=== PATIENT | female | born 1940 | race Caucasian/White ===

== ENCOUNTER → 2016-11-10 | Outpatient (CLI) | payer OTHER ==
[~2016-11-10] VITALS: Ht 162.6 cm; Wt 67.2 kg
[~2016-11-10] MED LIST: ANTIVERT12.5 MG PO; ASPIRIN EC81 M1 PO; AZITHROMYCIN 2250 MG PO; B12INJ IM; BENTYL10 MG PO; BUTRANS TRANSDERM; BUTRANS1 EAC1 TD; CARAFATE 1 GM TA1 G1 PO; CELEBREX 200 M200 MG PO; CIPROFLOXACIN250 M2 PO; CIPROFLOXACIN500 M1 PO; DESYREL50 MG PO; EFFEXOR XR150 MG PO; ESTRADIOL 1 MG T1 M1; ESTROVEN MAX400 MCG PO; FENTANYL PA25 MCG/HR TRANSDERM; FLAGYL500 MG PO; FLONASE 0.05%50 MCG NASAL; GABAPENTIN 100100 MG PO; GLUCOPHAGE1000 MG PO; GLUCOPHAGE500 MG PO; GLYCOLAX POWDER17 G1 PO; HEMORRHOIDAL HC25 MG RECTAL; HORMONE; HYDROCODON-ACE1 EAC5 PO; KLOR-CON 1010 MEQ PO; LANTUS SUBQ; LASIX 40 MG TAB40 M1 PO; LASIX 40 MG TAB40 M2 PO; LEVEMIR SUBQ; LEVSIN-SL0.125 MG SL; LOPRESSOR25 PO; LORAZEPAM 1 MG T1 M1 PO; METFORMIN HCL500 M2 PO; METFORMIN HCL500 MG PO; METHADONE HCL5 MG PO; MIRALAX255 GM PO; MULTI VITAMIN1 EACH PO; NEURONTIN 300300 M1 PO; NORCO 10-325 T1 EACH PO; NORCO 5-325 TA1 EACH PO; NOVOLOG100 UNIT/1 SUBQ; OMEPRAZOLE40 MG PO; OPIUM TINC10 MG/1 M1 PO; OPIUM TINCTURE PO; OXYBUTYNIN CHLO10 MG PO; OXYCODONE; OXYCODONE HCL20 M1 PO; OXYCODONE PO; OXYCODONE-ACET1 EAC2 PO; OXYCONTIN; OXYCONTIN10 M1 PO; OXYCONTIN20 M1 PO; OXYCONTIN30 MG PO; PERCOCET 10-321 EAC1 PO; PRILOSEC40 MG PO; REGLAN 5 MG TAB5 M1 PO; RESTORIL30 MG PO; SANDOSTATI500 MCG/1 IJ; SIMVASTATIN40 MG PO; TOPROL XL25 MG PO; TRAMADOL 50 MG50 MG PO; TRAZODONE HCL100 MG PO; TRAZODONE PO; ZOCOR40 MG PO; [UNRECOGNIZED DRUG - OTHER] PO
--- NOTE | ~2016-11-10 | HPC ---
[facility] [place] [address] PAIN MANAGEMENT CONSULTATION Name: OPHELIAMALIBRIGETTEYEN YAIR Room #: REG [facility] M.R.#: [id number] Admission: 11/10/16 Attend Phys: Pablo Adams MD Discharge: Date of : 41 Report #: [id number] THIS REPORT FOR: //name// CC: Nguyễn Adams DATE OF SERVICE: 11/10/2016 Followup visit for chronic intractable pain. She complains today of right fifth metatarsophalangeal tenderness and pain, which has responded nicely in the past to injection and also her chronic upper back and neck pain. The patient is here today in followup. She complains of 2 separate pains which are bothersome and she would like injections. She has been recipient of an injection of the metatarsophalangeal joint of the fifth toe in the past and said that it really helped. That pain is now recurring and is affecting her ambulation. It is well localized and tender. She also has chronic low back pain, chronic abdominal pain with intractable diarrhea following surgery and also complains of shoulder and upper back pain. Her pain on a daily basis is an 8/10. She is receiving medications under terms of an opioid agreement and all of those medications are provided through Dr. Germain's office. I do not prescribe any medications. MEDICATIONS: Simvastatin for intractable diarrhea, OxyContin 20 mg b.i.d. Estradiol, temazepam 30 mg at bedtime, gabapentin 100 mg t.i.d., insulin, aspirin, metoprolol, venlafaxine 150 mg daily, Imodium and tincture of opium have been tried in the past. ALLERGIES: Iodinated contrast material and she reacted to hepatitis B vaccine. PHYSICAL EXAMINATION: GENERAL: She is pleasant, alert and oriented. At times in the past I have seen her she is overmedication or confused, today, she was fine. VITAL SIGNS: Her blood pressure 168/75, heart rate 76, BMI is 25.4. EXTREMITIES: Examination of the upper back reveals diffuse myofascial tender points throughout the trapezius bilaterally. Examination of the right lower extremity reveals a very tender metatarsophalangeal joint of the fifth digit. IMPRESSION: 1. 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 She has been left with chronic intractable diarrhea. 2. Osteoarthritis fifth partial right foot. 3. Upper back pain with myofascial features. RECOMMENDATION: Trigger point injections in the trapezius bilaterally and [address] [address] PAIN MANAGEMENT CONSULTATION Name: YEN RAMIREZ [facility] Room #: REG NEEL Rodas#: [id number] Admission: 11/10/16 Attend Phys: Pablo Adams MD Discharge: Date of : 41 Report #: [id number] fluoroscopically guided metatarsophalangeal injection. After informed consent, she was taken to the fluoroscopy suite. She was placed supine on the x-ray table. I was able to easily visualize the metatarsophalangeal joint and the skin was anesthetized. I then used a 27-gauge needle and gently injected 0.5 mL of 0.5% bupivacaine and 20 mg of triamcinolone into the periarticular area as well as the joint itself. Needle was removed. She tolerated the injection well. She was then placed in the sitting position and trigger points x 4 were identified in the right and left trapezius. These trigger points were then each injected with 1 mL of 0.5% bupivacaine mixed with 1 mg per mL of triamcinolone. She tolerated the injections well and was observed for a short time at discharge. No medications were ordered. By: 1721 0300 Pablo Adams MD /nt
[2016-11-10 14:47] VITALS: BP 168/75
== END | disposition home or self-care (01) ==
LOC: PAIN 10-20 07:08
DX: M19.071 Primary osteoarthritis, right ankle and foot (principal); M79.1 Myalgia; G89.29 Other chronic pain; R10.9 Unspecified abdominal pain; M54.9 Dorsalgia, unspecified; I10 Essential (primary) hypertension; E11.9 Type 2 diabetes mellitus without complications; Z85.118 Personal history of other malignant neoplasm of bronchus and lung; Z98.890 Other specified postprocedural states

== ENCOUNTER 2017-03-24 16:08 | Inpatient (IN) | payer OTHER ==
[~2017-03-24] VITALS: Ht 162.6 cm; Wt 68.1 kg
--- NOTE | ~2017-03-24 | H ---
[facility] [place] [address] [place] [address] HISTORY AND PHYSICAL Name: OPHELIAMALIBRIGETTELEVONYEN YAIR Room #: 456-P ADM IN M.R.#: [id number] Admission: 03/24/17 Attend Phys: Bal Hummel Discharge: Date of : 41 Report #: [id number] THIS REPORT FOR: //name// CC: Nguyễn Germain CHIEF COMPLAINT: Weakness. HISTORY OF PRESENT ILLNESS: The patient is a 76-year-old female who was admitted to the Emergency Room with weakness. She was found down at home by her family and 911 was activated. By the time they arrived, the report was she had a blood sugar around 31 and was unresponsive. She was given D10, an additional glucose and oral treatment by the time in the ER. Blood sugar was stabilized; however, she had several lab abnormalities including abnormal renal function, lactic acid and D-dimer and therefore has been admitted. She said she just feels weak and sick all over, but really cannot specify any symptoms. She does admit to some diarrhea, but she cannot quantify or give more characteristic. She denied any fever, abdominal pain, nausea. PAST MEDICAL HISTORY: Diabetes type 2, hypertension, ____ to the bowel, she had a partial small-bowel obstruction years ago, which has left her with short gut syndrome. PAST SURGICAL HISTORY: As above. FAMILY HISTORY: Noncontributory. SOCIAL HISTORY: She lives with her family. No chronic alcohol or tobacco use. ALLERGIES: IODINE. MEDICATIONS: Octreotide, she reports OxyContin 20 mg twice a day, estradiol 1 mg, Restoril 30 mg, Neurontin 100 mg t.i.d., Effexor-XR 150 mg b.i.d., Prilosec, NovoLog with meals, aspirin 81 mg, Lopressor 25 mg b.i.d. and Levemir 25 units at bedtime. REVIEW OF SYSTEMS: She denies headache, chest pain, shortness of breath, abdominal pain, nausea, vomiting, diarrhea, constipation, dysuria, syncope or fall. PHYSICAL EXAMINATION: VITAL SIGNS: Per the nursing note. GENERAL: Awake, alert, in no distress. LUNGS: Clear. HEENT: She is edentulous. HEART: Regular. ABDOMEN: Soft, normoactive bowel sounds. No rebound. EXTREMITIES: No cyanosis, clubbing or edema. [address] [place] [address] HISTORY AND PHYSICAL Name: YEN RAMIREZ [facility] Room #: 456-P [facility] IN M.R.#: [id number] Admission: 03/24/17 Attend Phys: Bal Hummel Discharge: Date of : 41 Report #: [id number] NEUROLOGIC: Motor strength 4/5 throughout. LABORATORY DATA: Reviewed. ASSESSMENT: 1. Diabetic hypoglycemic reaction. 2. Acute kidney injury. 3. Uncontrolled diabetes type 2. 4. Short bowel syndrome. 5. Diarrhea. PLAN: Symptomatic treatment will be entered. Her electrolytes are improved and renal function with IV fluids. This may just be a prerenal state. Additional studies have been requested. Empiric antibiotics until culture is done. <ELECTRONICALLY SIGNED> By: Skyler Baker MD 03/26/17 0858 1305 1358 Skyler Baker MD /nt
--- NOTE | ~2017-03-24 | EKG ---
[address] [place] [employer] [address] ELECTROCARDIOGRAM REPORT Name: ASHLEYYEN Room #: 456-P ADM IN M.R.#: [id number] Admission: 03/24/17 Attend Phys: Bal Hummel Discharge: Date of : 41 Report #: [id number] THIS REPORT FOR: //name// [facility] ED Test Date: 2017-03-24 Test Time: 17:47:21 Pat Name: YEN RAMIREZ Department: Room: [facility] Gender: F Driver Guide: Jaswinder DESAI : 1940 Requested By: Patrick Lopez Order Number: [id number] MD: Quinn Saravia Measurements Intervals [place] Rate: 101 P: 39 MT: 173 QRS: 25 QRSD: 85 T: 44 QT: 342 QTc: 444 Interpretive Statements Sinus tachycardia No significant abnormality Compared to ECG 09/15/2016 14:03:06 No significant change was found Electronically Signed On 03-25-2017 7:54:52 CDT by Quinn Saravia [email or web address] <ELECTRONICALLY SIGNED> By: Quinn Saravia MD, [facility] 03/25/17 0754 1747 174 Quinn Saravia MD, [facility] /EPI
--- NOTE | ~2017-03-24 | D ---
[facility] [place] [place] [address] DISCHARGE SUMMARY Name: ASHLEYYEN YAIR Room #: 456-P ADM IN M.R.#: [id number] Admission: 03/24/17 Attend Phys: Bal Hummel Discharge: Date of : 41 Report #: [id number] THIS REPORT FOR: //name// CC: Nguyễn Germain FINAL DIAGNOSES: 1. Acute kidney injury due to dehydration, resolved. 2. Hypoglycemia. 3. Diabetes type 2. 4. Hypertension. 5. Short bowel syndrome. HOSPITAL COURSE: The patient right was admitted with altered mental status from home. She was found to have elevated BUN and creatinine consistent with dehydration with her reports of diarrhea at home. Blood cultures were negative. Urine sample was fairly unremarkable. Other studies were unremarkable as well. She was treated symptomatically with IV fluids and supportive measures. She improved with this conservative treatment. Insulin was discontinued and her blood sugars remained below 200. I discontinued her narcotics and sleeping medications for concerns of misuse at home, but also with altered mental status. She was not having any uncontrolled pain during her stay nor any complaints of insomnia. She was still globally weak and I recommended intermediate rehabilitation. DISPOSITION: She will be transferred to [facility] under the care of the inhouse physician. DIET: Diabetic diet. ACTIVITY: As tolerated, PT and OT. MEDICATIONS: Will include aspirin 81 mg, metoprolol 25 mg twice a day, Norvasc 10 mg a day. INSTRUCTIONS: I have asked them to watch her blood sugars 4 times a day and add low doses of insulin as needed and follow up BMP on Thursday. <ELECTRONICALLY SIGNED> By: Skyler Baker MD 03/27/17 1622 1444 1458 Skyler Baker MD /nt
[2017-03-24 16:08] VITALS: BP 156/80
[2017-03-24 16:56] LABS: HEMATOCRIT 33.2 % (37.0-47.0); HEMOGLOBIN 10.7 gm/dL (12.0-15.0); MANUAL DIFF YES; MCH 28.5 pg (26.0-34.0); MCHC 32.2 g/dL (28.0-37.0); MCV 88.4 fL (80.0-100.0); PLATELET COUNT 257 thou/uL (150-400); RBC 3.75 mil/uL (4.20-5.00); RDW 14.6 % (10.5-14.5); URINE BILIRUBIN NEGATIVE (Negative); URINE BLOOD TRACE (Negative); URINE COLOR YELLOW; URINE GLUCOSE-RANDOM* NEGATIVE (Negative); URINE KETONES NEGATIVE (Negative); URINE NITRITE NEGATIVE (Negative); URINE PROTEIN (DIPSTICK) TRACE (Negative); URINE SPECIFIC GRAVITY >= 1.030 (1.003-1.035); URINE UROBILINOGEN 0.2 E.U./dl (0.2-1.0); WBC 20.2 thou/uL (4.0-11.0)
[2017-03-24 17:05] LABS: CALCIUM 8.6 mg/dL (8.5-10.1); CREATININE 2.6 mg/dL (0.6-1.0); POTASSIUM 5.7 mmol/L (3.5-5.1)
[2017-03-24 17:21] LABS: ALBUMIN 3.2 g/dL (3.4-5.0); ALKALINE PHOSPHATASE 85 U/L (46-116); DIRECT BILIRUBIN < 0.1 mg/dL (<0.1-0.3); SGOT 40 U/L (15-37); SGPT 32 U/L (30-65); TOTAL BILIRUBIN 0.2 mg/dL (<0.1-1.0)
[2017-03-24 18:16] LABS: ABSOLUTE NEUTROPHILS 19.6 thou/uL (1.4-8.2); ANISOCYTOSIS 1+; MICROCYTES SLIGHT; TOTAL CELL COUNT 100
[2017-03-24 18:50] VITALS: BP 158/58
[2017-03-24 19:56] VITALS: BP 185/84
[2017-03-25 00:14] VITALS: BP 144/80
[2017-03-25 04:18] VITALS: BP 185/83
[2017-03-25 06:06] LABS: HEMATOCRIT 31.5 % (37.0-47.0); HEMOGLOBIN 10.3 gm/dL (12.0-15.0); MCH 28.9 pg (26.0-34.0); MCHC 32.7 g/dL (28.0-37.0); MCV 88.4 fL (80.0-100.0); RBC 3.56 mil/uL (4.20-5.00); RDW 14.5 % (10.5-14.5); WBC 9.8 thou/uL (4.0-11.0)
[2017-03-25 06:26] LABS: ALBUMIN 2.9 g/dL (3.4-5.0); CALCIUM 8.3 mg/dL (8.5-10.1); CREATININE 2.2 mg/dL (0.6-1.0); POTASSIUM 5.1 mmol/L (3.5-5.1); TOTAL BILIRUBIN 0.2 mg/dL (<0.1-1.0); TOTAL PROTEIN 7.6 g/dL (6.4-8.2)
[2017-03-25 08:44] VITALS: BP 174/81
[2017-03-25 11:46] VITALS: BP 176/76
[2017-03-25 15:31] VITALS: BP 166/90
[2017-03-25 19:20] VITALS: BP 178/93
[2017-03-26 05:46] LABS: HEMATOCRIT 30.1 % (37.0-47.0); HEMOGLOBIN 10.1 gm/dL (12.0-15.0); MCH 30.1 pg (26.0-34.0); MCHC 33.5 g/dL (28.0-37.0); MCV 89.8 fL (80.0-100.0); RBC 3.35 mil/uL (4.20-5.00); RDW 15.2 % (10.5-14.5); WBC 8.5 thou/uL (4.0-11.0)
[2017-03-26 06:10] LABS: CALCIUM 8.1 mg/dL (8.5-10.1); CREATININE 1.6 mg/dL (0.6-1.0); POTASSIUM 5.2 mmol/L (3.5-5.1)
[2017-03-26 07:47] VITALS: BP 179/85
[2017-03-26 11:53] VITALS: BP 179/86
[2017-03-26 15:52] VITALS: BP 164/81
[2017-03-26 20:08] VITALS: BP 188/84
[2017-03-27 04:40] VITALS: BP 186/94
[2017-03-27 06:04] LABS: CALCIUM 8.3 mg/dL (8.5-10.1); CREATININE 1.5 mg/dL (0.6-1.0); POTASSIUM 4.4 mmol/L (3.5-5.1)
[2017-03-27 08:24] VITALS: BP 163/93
[2017-03-27] MEDS ORDERED: AMLODIPINE BESYL5 M1 PO (09:08)
[2017-03-27 12:11] VITALS: BP 180/91
[2017-03-27 14:20] VITALS: BP 183/91
[2017-03-27] MEDS ORDERED: NORVASC10 MG PO ×3 (14:36→14:46)
[2017-03-27] MEDS ORDERED: NORVASC5 MG PO ×2 (14:51→14:54)
[2017-03-27 16:07] VITALS: BP 172/89
[2017-04-02] MEDS ORDERED: AMLODIPINE BESYL5 M1 PO (10:05)
== END 2017-03-27 17:00 | DRG 637 ==
LOC: ER 16:08 → 4W 18:34 → EROBS 18:34 → 3N 18:34 → 4W 22:40
PROVIDERS: Internal Medicine Geriatric Medicine; Nurse Practitioner
DX: E11.649 Type 2 diabetes mellitus with hypoglycemia without coma (principal); G93.41 Metabolic encephalopathy; E87.1 Hypo-osmolality and hyponatremia; K91.2 Postsurgical malabsorption, not elsewhere classified; N17.0 Acute kidney failure with tubular necrosis; Z96.643 Presence of artificial hip joint, bilateral; E11.9 Type 2 diabetes mellitus without complications; E87.5 Hyperkalemia; E86.0 Dehydration; Y83.8 Other surgical procedures as the cause of abnormal reaction of the patient, or of later complication, without mention of misadventure at the time of the procedure; K52.9 Noninfective gastroenteritis and colitis, unspecified; Z90.49 Acquired absence of other specified parts of digestive tract; Z85.038 Personal history of other malignant neoplasm of large intestine; Z88.7 Allergy status to serum and vaccine; Z91.041 Radiographic dye allergy status; I10 Essential (primary) hypertension
CPT/HCPCS: 10047

== ENCOUNTER 2017-03-30 17:58 | Inpatient (IN) | payer OTHER | END 2017-04-02 12:41 | DRG 682 | LOC: ER 17:58 → EROBS 19:32 → 4E 21:10 | DX: N17.9 Acute kidney failure, unspecified (principal); G93.41 Metabolic encephalopathy; Z96.643 Presence of artificial hip joint, bilateral; E11.22 Type 2 diabetes mellitus with diabetic chronic kidney disease; I12.9 Hypertensive chronic kidney disease with stage 1 through stage 4 chronic kidney disease, or unspecified chronic kidney disease; G89.4 Chronic pain syndrome; N18.9 Chronic kidney disease, unspecified; R47.1 Dysarthria and anarthria; Z90.49 Acquired absence of other specified parts of digestive tract; Z85.038 Personal history of other malignant neoplasm of large intestine; Z88.7 Allergy status to serum and vaccine; Z91.041 Radiographic dye allergy status ==

== ENCOUNTER → 2017-07-15 | Outpatient (CLI) | payer OTHER ==
[~2017-07-15] MED LIST changes: +AMLODIPINE BESYL5 M1 PO; +NORVASC10 MG PO; +NORVASC5 MG PO; +ULTRAM 50MG TAB50 MG PO
== END ==
LOC: CAT 13:09
DX: S62.643A Nondisplaced fracture of proximal phalanx of left middle finger, initial encounter for closed fracture (principal); C80.1 Malignant (primary) neoplasm, unspecified; X58.XXXA Exposure to other specified factors, initial encounter; Y93.89 Activity, other specified; Y92.89 Other specified places as the place of occurrence of the external cause; Y99.8 Other external cause status

== ENCOUNTER 2017-11-23 13:24 | Inpatient (IN) | payer OTHER ==
[~2017-11-23] VITALS: Ht 162.6 cm; Wt 54.0 kg
--- NOTE | ~2017-11-23 | HC ---
[facility] [place] [place] [address] CONSULTATION Name: OPHELIAMALIBRIGTETEYEN YAIR Room #: 432-P ADM IN M.R.#: [id number] Admission: 11/23/17 Attend Phys: Skyler Baker MD Discharge: Date of : 41 Report #: [id number] THIS REPORT FOR: //name// CC: Nguyễn Baker REASON FOR CONSULTATION: Acute kidney injury. REASON FOR PRESENTATION: Abdominal pain and diarrhea. HISTORY OF PRESENT ILLNESS: This is a 77-year-old with extensive past medical history. 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 She presented with weakness, diffuse abdominal pain, profuse diarrhea in the last few days. On presentation, she was found to have an elevated creatinine. Looking back all through 6901-8126, she had normal kidney function. She did have an acute kidney injury back in 2016 and creatinine settled at 1.3. When she presented, her creatinine was 3.5. I was consulted to manage her acute kidney injury. She was also found to be anemic. 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 This was a right hemicolectomy. She denies nonsteroidal anti-inflammatory medications intake. She takes some blood pressure medications, but she is not aware of those medications. PAST MEDICAL HISTORY: 1. Type 2 diabetes mellitus. 2. CVA. 3. Hep B. 4. Carcinoid. 5. Status post cholecystectomy. 6. Hysterectomy. 7. Hypertension. 8. Status post colectomy. ALLERGIES: DYE. FAMILY HISTORY: No known chronic kidney disease. SOCIAL HISTORY: She resides in an assisted living. No drug or alcohol abuse. 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 MEDICATIONS: Listed on her medications, Norvasc, tramadol, omeprazole, aspirin and Effexor. REVIEW OF SYSTEMS: GENERAL: Significant for weakness. CARDIOVASCULAR: No chest pain or palpitation. PULMONARY: No cough or hemoptysis. [facility] [address] [place] [address] CONSULTATION Name: YEN RAMIREZ [facility] Room #: 432-P [facility] IN .R.#: [id number] Admission: 11/23/17 Attend Phys: Skyler Baker MD Discharge: Date of : 41 Report #: [id number] GASTROINTESTINAL: No nausea or vomiting. However, significant diarrhea. GENITOURINARY: No frequency, no urgency, no hesitancy. PHYSICAL EXAMINATION: GENERAL: She is alert, oriented, in no apparent distress. VITAL SIGNS: Blood pressure is more stable at 132/68. There was no evidence of hypotension when she presented. HEAD AND NECK: No JVD. CARDIOVASCULAR: No chest pain or palpitation. No rub. ABDOMEN: Soft, nontender. LOWER EXTREMITIES: No edema. LABORATORY DATA: Laboratory values reviewed. Hemoglobin is still low at 7.2. She did have an MCV that is low at 78. Potassium is down from 5.7 to 5.6. BUN is 35, creatinine is down to 2.8. Liver enzymes were within normal. She did have low albumin. C. diff was negative. Ultrasound of the kidneys revealed cyst. Chest x-ray, no acute abnormality. ASSESSMENT, IMPRESSION AND PLAN: 1. Acute kidney injury. 2. Diarrhea in a patient with ileal carcinoid tumor. 3. Status post hemicolectomy. 4. Hypertension. 5. Hyperkalemia. 6. Anemia. 7. It does look like that she had an evidence of volume depletion on her presentation. This seemed to have responded very well to IV fluids. 8. I will reformulate her IV fluids. 9. Watch the potassium. It is marginally elevated and there is no need to treat it for now. 10. Continue with the IV fluids. 11. Avoid nephrotoxins. 12. GI workup for her anemia. We will continue to follow along. <ELECTRONICALLY SIGNED> By: Hernandez Cardona MD 11/30/17 0641 0735 0854 Hernandez Cardona MD /nt
--- NOTE | ~2017-11-23 | EKG ---
[address] [place] [address] ELECTROCARDIOGRAM REPORT Name: ASHLEYYEN Room #: 170-10 ADM IN M.R.#: [id number] Admission: 11/23/17 Attend Phys: Skyler Baker MD Discharge: Date of : 41 Report #: [id number] THIS REPORT FOR: //name// [facility] ED Test Date: 2017-11-23 Test Time: 13:39:04 Pat Name: YEN RAMIREZ Department: Room: 170 Gender: F Firer [employer]: BERNARD : 1940 Requested By: Beltran Mora Order Number: [id number] MD: Quinn Saravia Measurements Intervals [place] Rate: 98 P: 44 MT: 145 QRS: 34 QRSD: 73 T: 60 QT: 342 QTc: 437 Interpretive Statements Sinus rhythm No significant abnormality Compared to ECG 03/30/2017 18:06:06 No significant change was found Electronically Signed On 11-23-2017 17:18:40 CDT by Quinn Saravia [email or web address] <ELECTRONICALLY SIGNED> By: Quinn Saravia MD, [facility] 11/23/17 1718 1339 133 Quinn Saravia MD, [facility] /EPI
--- NOTE | ~2017-11-23 | D ---
[facility] [place] [address] DISCHARGE SUMMARY Name: YEN RAMIREZ YAIR Room #: 221-P ADM IN M.R.#: [id number] Admission: 11/23/17 Attend Phys: Skyler Baker MD Discharge: Date of : 41 Report #: [id number] THIS REPORT FOR: //name// CC: Nguyễn Baker FINAL DIAGNOSES: 1. Weyqx-rr-dgnysve kidney disease, stage 4. 2. Short bowel syndrome. 3. Diarrhea due to the above. 4. Hypertension. 5. Diabetes type 2. 6. Gastritis. PROCEDURES: 1. EGD. 2. Attempted colonoscopy. HOSPITAL COURSE: The patient was admitted with weakness. She was found to have nnblm-we-zmfruok kidney disease with elevated BUN and creatinine and electrolyte disturbance. IV fluids were administered and the Renal Service followed her. GI followed her as well. EGD showed gastritis, attempted colonoscopy x 2 but she was unable to proceed with the bowel prep and therefore it was canceled. She has known prior history of carcinoid with extensive bowel resection including right hemicolon and I believe some degree of small bowel. Ultimately felt that her diarrhea and high output along with kidney injury was related to short bowel syndrome and GI fluid loss. Imodium and fiber were added and she had no other interval complications. PHYSICAL EXAMINATION: On the day of discharge: GENERAL: She was awake and alert. VITAL SIGNS: Stable. LUNGS: Clear. HEART: Regular. ABDOMEN: Soft, normoactive bowel sounds. EXTREMITIES: No edema. DISPOSITION: She will be transferred to [facility]. Lab work will be ordered Thursday, Thursday and Thursday. Continue current medications. Followup with Dr. Germain in [address] Coleman in 2 weeks. By: 1036 1319 Skyler Baker MD /nt
--- NOTE | ~2017-11-23 | P ---
[facility] [place] [address] PROCEDURE REPORT Name: YEN RAMIREZ YAIR Room #: 432-P [facility] IN M.R.#: [id number] Admission: 11/23/17 Attend Phys: Skyler Baker MD Discharge: Date of : 41 Report #: [id number] THIS REPORT FOR: //name// CC: Nguyễn Baker MD BRIEF HISTORY: The patient is a 77-year-old woman who has a microcytic anemia. She also has Hemoccult-positive stools. She has had problems with diarrhea. She also has a history of diabetes. In addition, she has abdominal pain as well. PREOPERATIVE DIAGNOSES: Abdominal pain, diarrhea, anemia, and Hemoccult-positive stools. POSTOPERATIVE DIAGNOSIS: Moderate antral erosive gastritis. MEDICATIONS: Deep sedation with propofol per anesthesia. SPECIMENS: 1. Small-bowel biopsies to rule out celiac disease. 2. Biopsies of gastritis. ESTIMATED BLOOD LOSS: 3 mL. PROCEDURE: EGD with biopsy. FINDINGS: Prior to propofol sedation, procedure of upper endoscopy was discussed with the patient as well as potential risks, benefits, and complications. She indicates she understands and desires to proceed. With the patient in left lateral decubitus position, the [employer] video endoscope was inserted in the cervical esophagus under direct vision without difficulty. Examination of this organ through its entire length revealed normal esophageal mucosa down the squamocolumnar junction. No ulcers, erosions, or bleeding lesions were seen. A hiatus hernia was not seen. There was no evidence of Jaramillo mucosa. Scope was advanced in the stomach, which was examined on end view as well as retroflexed views. There were erosions in the antrum without evidence of bleeding. These were likely result of her daily use of aspirin. Ulcers were not seen. Otherwise, the mucosa was intact throughout the stomach. Upon retroflexion, no mass lesions were seen. A significant hiatus hernia was not seen. The pylorus, duodenal bulb, and postbulbar sweep were all inspected and noted to be within normal limits. At that point, the scope was slowly withdrawn and careful circumferential views obtained. Biopsies were obtained of the small-bowel to rule out celiac disease. DISPOSITION: The patient with anemia, Hemoccult positive stools, abdominal pain [address] [address] PROCEDURE REPORT Name: YEN RAMIREZ [facility] Room #: 432-P [facility] IN M.R.#: [id number] Admission: 11/23/17 Attend Phys: Skyler Baker MD Discharge: Date of : 41 Report #: [id number] and diarrhea with the above mentioned findings. We will follow up on biopsies with regard to celiac disease as well as H. pylori. PPI would be reasonable at this point in time. We will proceed with colonoscopy for further evaluation. <ELECTRONICALLY SIGNED> By: Jamaal Moss MD 11/30/17 1712 1157 1448 Jamaal Moss MD /christine
--- NOTE | ~2017-11-23 | H ---
[facility] [place] [address] HISTORY AND PHYSICAL Name: ASHLEYYEN YAIR Room #: 432-P ADM IN M.R.#: [id number] Admission: 11/23/17 Attend Phys: Skyler Baker MD Discharge: Date of : 41 Report #: [id number] THIS REPORT FOR: //name// CC: Nguyễn Baker DATE OF SERVICE: 11/23/2017 CHIEF COMPLAINT: Weakness and confusion. HISTORY OF PRESENT ILLNESS: The patient is a 77-year-old female brought to the Emergency Room from her assisted living facility with confusion and weakness. The history is very limited and I spoke to the ER physician. Apparently, her son called this morning as per routine, but she did not sound normal. She reported to him that she was just feeling "off" but really could not provide any other specific symptoms. EMS was called to the independent living facility and she was brought to the Emergency Room. She did report to me symptoms of diarrhea, but denied any fever, chills, nausea, vomiting, productive cough or dysuria. She had a similar episode in 03/2017. She had acute kidney injury with elevated BUN and creatinine on some chronic kidney disease. There were reports of diarrhea at that time, but infectious workup was negative. She responded to conservative treatment of IV fluids and then transferred to a shelter facility. PAST MEDICAL HISTORY: Hypertension, short bowel syndrome, diabetes type 2, chronic pain syndrome, chronic kidney disease. PAST SURGICAL HISTORY: She has had colon cancer with partial colon resection, hysterectomy, laparoscopic cholecystectomy, bilateral hip replacement. FAMILY HISTORY: Noncontributory. SOCIAL HISTORY: Denies chronic alcohol or tobacco use. ALLERGIES: IODINE CONTRAST, HEPATITIS B VACCINE. MEDICATIONS: Norvasc, tramadol, omeprazole, Lopressor, aspirin, Effexor. REVIEW OF SYSTEMS: Other than complaining of diarrhea and weakness, she denies chest pain, shortness of breath, nausea, vomiting, dysuria, syncope or fall. PHYSICAL EXAMINATION: VITAL SIGNS: Temperature 37.7, pulse 100, respirations 10, blood pressure 157/77, O2 sat 100% on room air. [facility] [address] [place] [address] HISTORY AND PHYSICAL Name: YEN RAMIREZ [facility] Room #: 432-P [facility] IN .R.#: [id number] Admission: 11/23/17 Attend Phys: Skyler Baker MD Discharge: Date of : 41 Report #: [id number] GENERAL: She is awake, lying in bed, in no distress. HEAD AND NECK: She is edentulous with dry mucous membranes. LUNGS: Clear anteriorly. HEART: Regular, no murmur. ABDOMEN: Soft, normoactive bowel sounds. No rebound or guarding. EXTREMITIES: No cyanosis, clubbing or edema. NEUROLOGIC: She moves all extremities equally. She seems to recognize she is at the hospital. She could remember Dr. Germain's name. LABORATORY REVIEW: White count is 10, hemoglobin 9, MCV 79. Sodium 134, potassium 5.5, CO2 15, BUN 47, creatinine 3.2. CT head, chest x-ray were unremarkable. Urinalysis was negative. ASSESSMENT: 1. Acute kidney injury. 2. Hypertension. 3. Hyperkalemia. 4. Mild protein-calorie malnutrition. 5. Metabolic encephalopathy due to #1. PLAN: Fluids have been ordered. I will ask for a renal ultrasound to rule out hydronephrosis or obstruction. May need to investigate this report of diarrhea given her short bowel syndrome and if she is having significant liquid stools, maybe she is not able to keep up with oral intake. <ELECTRONICALLY SIGNED> By: Skyler Baker MD 11/24/17 1005 1505 1527 Skyler Baker MD /nt
--- NOTE | ~2017-11-23 | P ---
[facility] [place] [address] PROCEDURE REPORT Name: YEN RAMIREZ YAIR Room #: 432-P [facility] IN M.R.#: [id number] Admission: 11/23/17 Attend Phys: Skyler Baker MD Discharge: Date of : 42 Report #: [id number] THIS REPORT FOR: //name// CC: Nguyễn Baker MD BRIEF HISTORY: The patient is a 77-year-old woman with a history of a small bowel carcinoid resected more than 5 years ago with an ileocolonic anastomosis. She has had problems with diarrhea. She also has Hemoccult positive stools, microcytic anemia and abdominal pain. PREOPERATIVE DIAGNOSES: History of carcinoid, anemia, Hemoccult positive stools, abdominal pain. POSTOPERATIVE DIAGNOSES: History of carcinoid, anemia, Hemoccult positive stools, abdominal pain. MEDICATIONS: Deep sedation with propofol per Anesthesia. SPECIMEN: None. ESTIMATED BLOOD LOSS: None. PROCEDURE: Aborted colonoscopy. FINDINGS: Prior to propofol sedation, the procedure of colonoscopy discussed with the patient. The patient did not complete all of her prep, but believes that she has had a good enough prep for colonoscopy. DESCRIPTION OF PROCEDURE: Subsequently, digital examination was completed, which revealed no abnormalities. The Shoot Extreme video colonoscope was introduced in the rectum, advanced under direct vision. There was some liquidy stool in the rectum. As we advanced the scope into the sigmoid colon, the entire surface of colon was coated with thick stool material. It was obvious at this point that we could not complete a satisfactory colonoscopy. The prep was inadequate. The scope was withdrawn. The patient tolerated the attempted procedure well. DISPOSITION: Inadequate prep. We will discuss further with the patient. We will have her do additional preps and attempt again tomorrow. <ELECTRONICALLY SIGNED> By: Jamaal Moss MD 11/30/17 1712 1203 1443 Jamaal Moss MD /nt
[2017-11-23 13:26] VITALS: BP 157/77
[2017-11-23 13:53] LABS: URINE BILIRUBIN NEGATIVE (Negative); URINE BLOOD NEGATIVE (Negative); URINE CLARITY CLEAR; URINE COLOR YELLOW; URINE GLUCOSE-RANDOM* NEGATIVE (Negative); URINE KETONES NEGATIVE (Negative); URINE LEUKOCYTES-REFLEX NEGATIVE (Negative); URINE NITRITE-REFLEX NEGATIVE (Negative); URINE PROTEIN (DIPSTICK) NEGATIVE (Negative); URINE UROBILINOGEN 0.2 E.U./dl (0.2-1.0)
[2017-11-23 13:55] LABS: ABSOLUTE NEUTROPHILS 8.8 thou/uL (1.4-8.2); BASOPHILS 0.6 % (0.0-2.0); EOSINOPHILS 0.2 % (0.0-3.0); LYMPHOCYTES 11.4 % (24.0-44.0); MCH 25.5 pg (26.0-34.0); MCHC 32.3 g/dL (28.0-37.0); MCV 79.2 fL (80.0-100.0); MONOCYTES 5.7 % (1.0-8.0); PLATELET COUNT 296 thou/uL (150-400); POLYS 82.1 % (36.0-66.0); RBC 3.54 mil/uL (4.20-5.00); RDW 16.5 % (10.5-14.5); WBC 10.7 thou/uL (4.0-11.0)
[2017-11-23 13:57] LABS: ANION GAP 15 mmol/L (7-16); BUN 47 mg/dL (7-18); CALCIUM 8.8 mg/dL (8.5-10.1); CHLORIDE 104 mmol/L (98-107); CO2 15 mmol/L (21-32); CREATININE 3.2 mg/dL (0.6-1.0); GLUCOSE 136 mg/dL (74-106); POTASSIUM 5.5 mmol/L (3.5-5.1); SODIUM 134 mmol/L (136-145)
[2017-11-23 14:06] LABS: ALBUMIN 3.2 g/dL (3.4-5.0); SGOT 34 U/L (15-37); SGPT 41 U/L (30-65); TOTAL BILIRUBIN 0.3 mg/dL (<0.1-1.0); TOTAL PROTEIN 8.7 g/dL (6.4-8.2); TROPONIN-I < 0.04 ng/mL (<0.06)
[2017-11-23 17:18] VITALS: BP 157/77
[2017-11-23 18:18] VITALS: BP 157/77
[2017-11-23 18:38] VITALS: BP 149/73
[2017-11-23 20:00] VITALS: BP 142/68
[2017-11-24 05:30] VITALS: BP 111/53
[2017-11-24 06:32] LABS: HEMATOCRIT 25.6 % (37.0-47.0); HEMOGLOBIN 8.2 gm/dL (12.0-15.0); MCH 25.5 pg (26.0-34.0); MCHC 32.1 g/dL (28.0-37.0); MCV 79.5 fL (80.0-100.0); RBC 3.22 mil/uL (4.20-5.00); RDW 16.8 % (10.5-14.5); WBC 7.5 thou/uL (4.0-11.0)
[2017-11-24 06:51] LABS: CALCIUM 8.9 mg/dL (8.5-10.1); CREATININE 3.5 mg/dL (0.6-1.0); POTASSIUM 5.3 mmol/L (3.5-5.1)
[2017-11-24 06:53] VITALS: BP 123/57
[2017-11-24 08:30] VITALS: BP 123/57
[2017-11-24 11:21] VITALS: BP 141/52
[2017-11-24 15:03] VITALS: BP 126/50
[2017-11-24 20:04] VITALS: BP 136/53
[2017-11-25 05:09] VITALS: BP 126/47
[2017-11-25 06:34] LABS: CALCIUM 8.2 mg/dL (8.5-10.1); CREATININE 3.4 mg/dL (0.6-1.0); POTASSIUM 5.2 mmol/L (3.5-5.1)
[2017-11-25 08:05] VITALS: BP 117/59
[2017-11-25 20:00] VITALS: BP 124/66
[2017-11-26 03:40] VITALS: BP 121/58
[2017-11-26 06:10] LABS: CREATININE 3.2 mg/dL (0.6-1.0); POTASSIUM 5.1 mmol/L (3.5-5.1)
[2017-11-26 08:00] VITALS: BP 132/52
[2017-11-26 16:35] VITALS: BP 143/64
[2017-11-26 20:12] VITALS: BP 134/52
[2017-11-27 04:24] VITALS: BP 145/55
[2017-11-27 06:05] LABS: CALCIUM 8.2 mg/dL (8.5-10.1); CREATININE 3.1 mg/dL (0.6-1.0); POTASSIUM 5.7 mmol/L (3.5-5.1)
[2017-11-27 19:01] VITALS: BP 143/55
[2017-11-28 03:55] VITALS: BP 132/68
[2017-11-28 05:51] LABS: HEMATOCRIT 21.8 % (37.0-47.0); HEMOGLOBIN 7.2 gm/dL (12.0-15.0); MCH 25.8 pg (26.0-34.0); MCV 78.2 fL (80.0-100.0); RBC 2.78 mil/uL (4.20-5.00); RDW 16.7 % (10.5-14.5); WBC 6.8 thou/uL (4.0-11.0)
[2017-11-28 06:03] LABS: ALBUMIN 2.5 g/dL (3.4-5.0); CALCIUM 8.2 mg/dL (8.5-10.1); CREATININE 2.8 mg/dL (0.6-1.0); PHOSPHORUS 3.6 mg/dL (2.5-4.9); POTASSIUM 5.6 mmol/L (3.5-5.1)
[2017-11-28 07:24] VITALS: BP 138/57
[2017-11-28 13:19] LABS: CALCIUM 8.3 mg/dL (8.5-10.1); CREATININE 2.8 mg/dL (0.6-1.0); POTASSIUM 4.8 mmol/L (3.5-5.1)
[2017-11-28 19:12] VITALS: BP 136/71
[2017-11-29 03:30] VITALS: BP 148/78
[2017-11-29 07:42] VITALS: BP 127/72
[2017-11-29 09:04] LABS: ALBUMIN 2.6 g/dL (3.4-5.0); CALCIUM 8.2 mg/dL (8.5-10.1); CREATININE 2.8 mg/dL (0.6-1.0); PHOSPHORUS 3.7 mg/dL (2.5-4.9); POTASSIUM 4.6 mmol/L (3.5-5.1)
[2017-11-29 16:00] VITALS: BP 126/60
[2017-11-29 20:15] VITALS: BP 143/66
[2017-11-30 04:00] VITALS: BP 127/50
[2017-11-30 06:10] LABS: ALBUMIN 2.9 g/dL (3.4-5.0); CALCIUM 8.2 mg/dL (8.5-10.1); CREATININE 2.8 mg/dL (0.6-1.0); PHOSPHORUS 4.5 mg/dL (2.5-4.9); POTASSIUM 5.2 mmol/L (3.5-5.1)
[2017-11-30 07:05] VITALS: BP 122/68
[2017-11-30 18:14] LABS: URINE BILIRUBIN NEGATIVE (Negative); URINE BLOOD NEGATIVE (Negative); URINE CLARITY CLEAR; URINE COLOR YELLOW; URINE GLUCOSE-RANDOM* NEGATIVE (Negative); URINE KETONES NEGATIVE (Negative); URINE LEUKOCYTES NEGATIVE (Negative); URINE NITRITE NEGATIVE (Negative); URINE PROTEIN (DIPSTICK) NEGATIVE (Negative); URINE SPECIFIC GRAVITY <= 1.005 (1.005-1.035); URINE UROBILINOGEN 0.2 E.U./dl (0.2-1.0)
[2017-11-30 19:50] VITALS: BP 150/81
[2017-12-01 05:00] LABS: ALBUMIN 2.6 g/dL (3.4-5.0); CALCIUM 8.3 mg/dL (8.5-10.1); CREATININE 2.5 mg/dL (0.6-1.0); PHOSPHORUS 4.6 mg/dL (2.5-4.9); POTASSIUM 4.4 mmol/L (3.5-5.1)
[2017-12-01 05:32] VITALS: BP 128/66
[2017-12-01 07:22] VITALS: BP 125/60
[2017-12-01 10:10] VITALS: BP 121/102
[2017-12-01 10:29] VITALS: BP 132/52
[2017-12-01 14:43] VITALS: BP 148/77
[2017-12-01 19:10] VITALS: BP 142/66
[2017-12-02 03:59] VITALS: BP 1541/64
[2017-12-02 05:53] LABS: HEMATOCRIT 21.9 % (37.0-47.0); HEMOGLOBIN 7.1 gm/dL (12.0-15.0); MCHC 32.4 g/dL (28.0-37.0); MCV 80.4 fL (80.0-100.0); RBC 2.73 mil/uL (4.20-5.00); RDW 16.4 % (10.5-14.5); WBC 4.6 thou/uL (4.0-11.0)
[2017-12-02 08:20] VITALS: BP 141/65
[2017-12-02 20:15] VITALS: BP 154/72
[2017-12-03 05:14] LABS: ALBUMIN 2.7 g/dL (3.4-5.0); CALCIUM 8.4 mg/dL (8.5-10.1); CREATININE 2.5 mg/dL (0.6-1.0); POTASSIUM 4.6 mmol/L (3.5-5.1)
[2017-12-03 05:30] VITALS: BP 105/48
[2017-12-03 08:00] VITALS: BP 92/42
[2017-12-03 19:51] VITALS: BP 119/49
[2017-12-04 07:44] LABS: CALCIUM 8.4 mg/dL (8.5-10.1); CREATININE 2.5 mg/dL (0.6-1.0); POTASSIUM 5.2 mmol/L (3.5-5.1)
[2017-12-04 07:55] VITALS: BP 104/54
[2017-12-04] MEDS ORDERED: FIBERCON CHEWA625 MG PO (10:29)
[2017-12-04] MEDS ORDERED: ACETAMINOPHEN325 M1 PO (10:29)
[2017-12-04] MEDS ORDERED: PROTONIX 20 MG20 M1 PO (10:30)
== END 2017-12-04 13:34 | DRG 682 ==
LOC: ER 13:24 → EROBS 14:53 → 4E 14:53 → SICU 12-03 19:32
PROVIDERS: Hospitalist; Internal Medicine Geriatric Medicine; Internal Medicine Nephrology; Physician Assistant; Specialist
PROC: 0DB88ZX Excision of Small Intestine, Via Natural or Artificial Opening Endoscopic, Diagnostic (ICD-10-PCS; principal; 2017-11-30)
PROC: 0DB68ZX Excision of Stomach, Via Natural or Artificial Opening Endoscopic, Diagnostic (ICD-10-PCS; principal; 2017-11-30)
DX: N17.9 Acute kidney failure, unspecified (principal); G93.41 Metabolic encephalopathy; E44.1 Mild protein-calorie malnutrition; K91.2 Postsurgical malabsorption, not elsewhere classified; Z96.643 Presence of artificial hip joint, bilateral; G89.4 Chronic pain syndrome; D64.9 Anemia, unspecified; E11.22 Type 2 diabetes mellitus with diabetic chronic kidney disease; E87.5 Hyperkalemia; N18.4 Chronic kidney disease, stage 4 (severe); K29.60 Other gastritis without bleeding; E86.9 Volume depletion, unspecified; I12.9 Hypertensive chronic kidney disease with stage 1 through stage 4 chronic kidney disease, or unspecified chronic kidney disease; Z53.8 Procedure and treatment not carried out for other reasons; E03.9 Hypothyroidism, unspecified; Z90.49 Acquired absence of other specified parts of digestive tract; Z85.038 Personal history of other malignant neoplasm of large intestine; Z41.8 Encounter for other procedures for purposes other than remedying health state; Z68.20 Body mass index [BMI] 20.0-20.9, adult; Z79.4 Long term (current) use of insulin; Z90.710 Acquired absence of both cervix and uterus; Z88.7 Allergy status to serum and vaccine; Z91.041 Radiographic dye allergy status; Z86.73 Personal history of transient ischemic attack (TIA), and cerebral infarction without residual deficits; Z79.82 Long term (current) use of aspirin; Z79.899 Other long term (current) drug therapy
CPT/HCPCS: 10183; 15002; 27000; 62110; 62900; 70005

== ENCOUNTER → 2018-03-03 | Outpatient (CLI) | payer OTHER ==
[~2018-03-03] MED LIST changes: +ACETAMINOPHEN325 M1 PO; +FIBERCON CHEWA625 MG PO; +PROTONIX 20 MG20 M1 PO
== END ==
LOC: ULTRA 09:01 → EDSEX 09:01 → ULTRA 10:26
DX: R94.5 Abnormal results of liver function studies (principal); R10.9 Unspecified abdominal pain; E11.9 Type 2 diabetes mellitus without complications; I10 Essential (primary) hypertension; E78.2 Mixed hyperlipidemia

== ENCOUNTER 2018-07-26 23:53 | Inpatient (IN) | payer OTHER ==
[~2018-07-26] VITALS: Ht 162.6 cm; Wt 57.6 kg
[2018-07-26 23:54] VITALS: BP 154/62
[2018-07-27] MEDS ORDERED: TRAZODONE 150150 M1 PO
[2018-07-27 00:47] LABS: ABSOLUTE NEUTROPHILS 7.2 thou/uL (1.4-8.2); BASOPHILS 0.1 % (0.0-2.0); EOSINOPHILS 0.2 % (0.0-3.0); HEMATOCRIT 30.8 % (37.0-47.0); HEMOGLOBIN 10.6 gm/dL (12.0-15.0); LYMPHOCYTES 5.1 % (24.0-44.0); MCH 33.2 pg (26.0-34.0); MCHC 34.3 g/dL (28.0-37.0); MCV 96.6 fL (80.0-100.0); MONOCYTES 1.6 % (1.0-8.0); PLATELET COUNT 173 thou/uL (150-400); RBC 3.19 mil/uL (4.20-5.00); RDW 13.4 % (10.5-14.5); WBC 7.8 thou/uL (4.0-11.0)
[2018-07-27 00:50] LABS: ANION GAP 8 mmol/L (7-16); BUN 12 mg/dL (7-18); CALCIUM 8.6 mg/dL (8.5-10.1); CHLORIDE 99 mmol/L (98-107); CO2 28 mmol/L (21-32); CREATININE 1.3 mg/dL (0.6-1.0); GLUCOSE 98 mg/dL (74-106); POTASSIUM 4.1 mmol/L (3.5-5.1); SODIUM 135 mmol/L (136-145)
[2018-07-27 00:58] LABS: TROPONIN-I <0.06 ng/mL (<0.06)
[2018-07-27 02:28] VITALS: BP 144/69
[2018-07-27 03:25] VITALS: BP 153/76
--- NOTE | 2018-07-27 04:46 | NUR ---
PT ARRIVED UNIT AT ABOUT 0315. PT A/O X 4, SOMETIMES FORGETFUL. COMPLAINTS OF CHEST PAIN. DR MCDANIEL CONTACTED, ORDERS RECIEVED AND IMPLEMENTED. PT EXPRESSED PARTIAL RELIEVE OF CHEST PAIN AND ALSO STATED THE CHEST PAIN IS ALSO ALLEVIATED BY REST. ADMISSION ASSESSMENT COMPLETED, VITAL SIGNS STABLE WITH ELEVATED BLOOD PRESSURE AND TEMP OF 102.9. TYLENOL GIVEN. PT COMPLAINED OF A BRIEF EPISODE OF SOB, PT GIVEN 2L O2. RELIEF ACHIEVED. PT RESTING COMFORTABLY IN BED, WILL CONTINUE TO CLOSELY MONITOR.
[2018-07-27 07:25] VITALS: BP 92/50
--- NOTE | 2018-07-27 08:25 | EKG ---
[address] [address] ELECTROCARDIOGRAM REPORT Name: YEN RAMIREZ Room #: 211-P ADM IN M.R.#: [id number] Admission: 07/27/18 Attend Phys: Bal Hummel Discharge: Date of : 42 Report #: [id number] THIS REPORT FOR: //name// [facility] ED Test Date: 2018-07-27 Test Time: 00:06:34 Pat Name: YEN RAMIREZ Department: Room: 211 Gender: F Health Information Internship: KMMegan : 1940 Requested By: Pietro Azul Order Number: [id number] MD: Quinn Saravia Measurements Intervals [place] Rate: 96 P: 50 [place]: 177 QRS: 50 QRSD: 94 T: 53 QT: 359 QTc: 454 Interpretive Statements Sinus rhythm No significant abnormality Compared to ECG 11/23/2017 13:39:04 No significant changes Electronically Signed On 07-27-2018 8:25:38 BUILD AND DEPLOYMENT ENGINEER by Quinn Saravia [email or web address] <ELECTRONICALLY SIGNED> By: Quinn Saravia MD, [facility] 07/27/18 0825 D: 125 Quinn Saravia MD, FACC /EPI
[2018-07-27 11:25] VITALS: BP 113/58
--- NOTE | 2018-07-27 14:17 | NUR ---
met with patient who is A/Ox4. She resides in independent apt at [facility]. She reports at [facility] you rec one meal and then she makes small meals in apt. She does not drive or use assistive device. She reports the [facility] is expensive and interested in moving to another independent senior apt less expensive. Casemgt to gather resources. She reports her mother is really her emergency contact.
[2018-07-27 15:15] VITALS: BP 99/51
[2018-07-27 18:27] LABS: URINE BILIRUBIN 1+ (Negative); URINE BLOOD TRACE (Negative); URINE CLARITY CLEAR; URINE COLOR YELLOW; URINE GLUCOSE-RANDOM* NEGATIVE (Negative); URINE KETONES NEGATIVE (Negative); URINE LEUKOCYTES NEGATIVE (Negative); URINE NITRITE NEGATIVE (Negative); URINE PROTEIN (DIPSTICK) NEGATIVE (Negative); URINE UROBILINOGEN 0.2 E.U./dl (0.2-1.0)
[2018-07-27 18:29] LABS: ICTOTEST (BILI CONFIRMATORY) Positive (Negative)
[2018-07-27 20:15] VITALS: BP 110/66
[2018-07-28 00:45] VITALS: BP 115/58
[2018-07-28 04:49] VITALS: BP 114/44
--- NOTE | 2018-07-28 05:59 | NUR ---
ASSUMED PT CARE AT 1900 WITH BESIDE REPORT COMPLETED. NO SIGN OF DISTRESS NOTED IN PT.PT IS ALERT AND ORIENTED WITH NO SIGN OF DISTRESS NOTED IN PT. SCHEUDULED MED ADMINISTERED TO PT. ASSESSMENT COMPPLETED AND CHARTED. PATIENT DENIES ANY PAIN EXECPT FOR HEADACHE, TYLENOL WAS ADMINISTERED. PT IS STABLE. DENIES ANY FURTHER NEEDS AT THIS TIME.
[2018-07-28 07:15] VITALS: BP 129/66
--- NOTE | 2018-07-28 10:46 | NUR ---
gave patient resources for independent living. She repoorts pain in her abd area, RN aware. She reports feeling weak. She would benefit from therapy evals.
[2018-07-28 11:40] VITALS: BP 135/63
[2018-07-28 15:35] VITALS: BP 135/76
--- NOTE | 2018-07-28 17:24 | NUR ---
ASSESSMENT DOCUMENTED. PT ALERT AND ORIENTED. REPORT HAVING ABD DISCOMFORT AFTER EATING. SEEN BY DR. MCDANIEL. ORDERS NOTED. WILL CONTINUE TO MONITOR.
[2018-07-28 20:02] VITALS: BP 129/59
[2018-07-29 03:38] VITALS: BP 92/45
--- NOTE | 2018-07-29 06:01 | NUR ---
ASSUMED PT CARE WITH NO SIGN OF DISTRESS NOTED IN PT, PT IS ALERT AND ORIENTED AND STABLE. DENIES ANY NEED AT TIME. SCHEDULED MED ADMINISTERED TO PATIENT. CONTINUE TO MONITOR PATIENT THROUGH OUT THE NIGHT. PT IS STABLE.
[2018-07-29 08:00] VITALS: BP 108/52
[2018-07-29 11:55] VITALS: BP 91/47
[2018-07-29] MEDS ORDERED: PANTOPRAZOLE SO40 M1 PO (14:16)
[2018-07-29 14:24] VITALS: BP 91/47
--- NOTE | 2018-07-29 14:31 | NUR ---
patient to discharge home [facility] transportation to transport patient no further needs.
--- NOTE | 2018-07-29 14:50 | NUR ---
ASSESSMENT DOCUMENTED. PT ALERT AND ORIENTED. VSS. DENIED HAVING PAIN. REPORT HAVING ABD DISCOMFORT AFTER EATING. SEEN BY DR MCDANIEL. ORDERS GIVEN TO DISCHARGE PT TO HOME. DISCHARGE INSTRUCTIONS GIVEN TO PT. PT VERBERLIZE UNDERSTANDING. TRANSPORTATION SET UP FOR 1500.
--- NOTE | 2018-07-30 05:39 | H ---
[facility] [place] [address] HISTORY AND PHYSICAL Name: ASHLEYYEN [facility] Room #: 211-P [facility] IN M.R.#: [id number] Admission: 07/27/18 Attend Phys: Bal Hummel Discharge: 07/29/18 Date of : 42 Report #: [id number] THIS REPORT FOR: //name// CC: Nguyễn Baker DATE OF SERVICE: 11/23/2017 CHIEFCOMPLAINT: This is a patient well known to my service, who has had chest discomfort during the night that required her to come to the ER. HISTORY OF PRESENT ILLNESS: This is a patient, 77 years of age, who has a complicated history, but recently has been having fevers and chills and generalized malaise and was having substernal chest discomfort and lightheadedness and was brought to the Emergency Room. We had nothing that would be consistent with ischemic heart disease from a troponin level or EKG findings, but what interesting is significant fever with a temperature of 102. 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 She has had a partial colon resection from the carcinoid. She has had a previous history laparoscopic cholecystectomy and bilateral hip replacements. She has recently stopped her medications other than trazodone at bedtime. FAMILY HISTORY: Noncontributory. SOCIAL HISTORY: She does not drink alcohol or smoke tobacco and is disabled at this time. ALLERGIES: INCLUDE IODINE AND APPARENTLY THE HEPATITIS B VACCINE. REVIEW OF SYSTEMS: A 10 point otherwise negative other than what is finding in the HPI. PHYSICAL EXAMINATION: GENERAL: Shows her to be lying in bed. She is in no distress. Her mother is at the bedside. HEAD, EYES, EARS, NOSE, AND THROAT: Otherwise, negative. NECK: Supple, without thyromegaly or adenopathy. CHEST: Clear. CARDIOVASCULAR: Shows a regular rhythm without murmur. ABDOMEN: Soft and nontender, without hepatosplenomegaly. EXTREMITIES: Negative. NEUROLOGIC: Showed nothing focal. LABORATORY PARAMETERS: Showed a mild anemia at 10.5. Creatinine was normal. Blood sugar was normal. [facility] [address] [place] [address] HISTORY AND PHYSICAL Name: YEN RAMIREZ [facility] Room #: 211-P [facility] IN M.R.#: [id number] Admission: 07/27/18 Attend Phys: Bal Hummel Discharge: 07/29/18 Date of : 42 Report #: [id number] ASSESSMENT AND PLAN: This is a patient with chest discomfort and fever and a source at this point is unclear. It is possible that this is urinary source, pulmonary source seems unlikely. She is having difficulty with the previous carcinoid at least on abdominal exam, there was no tenderness or evidence of infection. This is a 77-year-old female well known to my service with chest discomfort and fever, etiology unclear. Hopefully, this is urinary source. We will start IV Zosyn and check cultures along with blood culture. No further cardiovascular workup is needed at this time. <ELECTRONICALLY SIGNED> By: Nguyễn Germain MD 07/30/18 0539 1219 1300 Nguyễn Germain MD /[facility]
== END 2018-07-29 15:22 | disposition home or self-care (01) | DRG 866 ==
LOC: ER 23:53 → EROBS 07-27 02:02 → 2N 07-27 02:02
PROVIDERS: Emergency Medicine; ADMIT Internal Medicine
DX: B34.9 Viral infection, unspecified (principal); E34.0 Carcinoid syndrome; R07.9 Chest pain, unspecified; Z96.643 Presence of artificial hip joint, bilateral; E11.9 Type 2 diabetes mellitus without complications; G89.4 Chronic pain syndrome; N18.9 Chronic kidney disease, unspecified; I12.9 Hypertensive chronic kidney disease with stage 1 through stage 4 chronic kidney disease, or unspecified chronic kidney disease; Z90.49 Acquired absence of other specified parts of digestive tract; Z85.038 Personal history of other malignant neoplasm of large intestine; Z79.4 Long term (current) use of insulin; Z90.710 Acquired absence of both cervix and uterus; Z88.7 Allergy status to serum and vaccine; Z91.041 Radiographic dye allergy status
CPT/HCPCS: 10081

== ENCOUNTER 2021-01-04 13:08 | Inpatient (IN) | payer OTHER ==
[~2021-01-04] VITALS: Ht 162.6 cm; Wt 53.1 kg
[~2021-01-04 13:08] MED LIST changes: +PANTOPRAZOLE SO40 M1 PO; +TRAZODONE 150150 M1 PO
[2021-01-04 13:11] VITALS: BP 125/54
[2021-01-04 14:00] LABS: HEMOGLOBIN 6.8 gm/dL (12.0-15.0)
[2021-01-04 14:04] LABS: RDW 17.2 % (10.5-14.5)
[2021-01-04 14:07] LABS: ABSOLUTE NEUTROPHILS 5.4 thou/uL (1.4-8.2); BASOPHILS 0.9 % (0.0-2.0); EOSINOPHILS 0.3 % (0.0-3.0); HEMATOCRIT 20.5 % (37.0-47.0); LYMPHOCYTES 5.2 % (24.0-44.0); MCH 30.8 pg (26.0-34.0); MCHC 33.2 g/dL (28.0-37.0); MCV 92.7 fL (80.0-100.0); MONOCYTES 7.5 % (1.0-8.0); PLATELET COUNT 309 thou/uL (150-400); POLYS 86.1 % (36.0-66.0); RBC 2.21 mil/uL (4.20-5.00); WBC 6.3 thou/uL (4.0-11.0)
[2021-01-04 14:09] LABS: CALCIUM 8.5 mg/dL (8.5-10.1); CREATININE 1.7 mg/dL (0.6-1.0); POTASSIUM 4.1 mmol/L (3.5-5.1)
[2021-01-04 14:15] LABS: TOTAL BILIRUBIN 5.7 mg/dL (0.2-1.0); TOTAL PROTEIN 8.2 g/dL (6.4-8.2)
[2021-01-04 16:23] LABS: ABSOLUTE RETIC COUNT 0.0343 10^6/uL; OBSERVED RETIC COUNT 1.56 % (0.6-2.6)
[2021-01-04 16:30] VITALS: BP 143/69
[2021-01-04 16:30] LABS: % SATURATION 24 % (20-39); INR 2.82; IRON 47 ug/dL (50-170); PROTIME 29.3 Seconds (10.5-12.1); TIBC 192 ug/dL (250-450)
--- NOTE | 2021-01-04 17:09 | NUR ---
TW ALAN, PT STATED VERY COLD AND HAVING CHILLS. PER CAMIAL CHECK TEMP. TEMP CHECKED AT 99.7 REPORTED, PER CAMIAL OK TO PROCEED WITH TRANSFUSION.
[2021-01-04 17:10] VITALS: BP 115/65
[2021-01-04 17:18] LABS: FOLIC ACID 16.3 ng/mL (8.6-58.9)
[2021-01-04 18:03] VITALS: BP 183/95
--- NOTE | 2021-01-04 18:11 | NUR ---
TALKED WITH DR HUDSON. I REPORTED THAT AFTER TRANSFER TECH WAS TAKING VS AND PT HAD TEMP OF 101 F. I STOPPED TRANSFUSION AND CALLED DR HUDSON WHEN I ARRRIVED BACK IN ED. DR HUDSON SAID THAT HE WOULD TALK WITH THE NURSE ON THE FLOOR AND TELL HER TO CONTINUE THE TRANSFUSION.
--- NOTE | 2021-01-04 20:24 | NUR ---
TRANSFUSION COMPLETED AT 2030HRS. VS AT 2036: BP: 118/47 HR: 95 RR 20 O2 97% TEMP 100.8. PT IS RESTING COMFORTABLY. NO S/S OF ACUTE DISTRESS. WILL CONTINUE TO MONITOR.
[2021-01-04 20:39] VITALS: BP 118/47
[2021-01-05 00:30] VITALS: BP 129/50
--- NOTE | 2021-01-05 01:58 | NUR ---
ASSUMED CARE OF PT AT SHIFT CHANGE. PT IS AOX4 AND LETS NEEDS BE KNOWN. FALL PRECAUTION IN PLACE. PT WAS ORIENTED TO THE UNIT AND HER ROOM. PT WAS ABLE TO ANSWER ADMISSION RELATED QUESTIONS AND SIGN CONSENTS. UNIT OF PRBC TRANSFUSED. PT IS AFEBRILE UPON REASSESSMENT. CONSULT CALLED. PT WAS ABLE TO GET COMFORTABLE AND SLEEP PART OF THE SHIFT. VSS AND NO S/S OF ACUTE DISTRESS. WILL CONTINUE TO MONITOR FOR CHANGES.
[2021-01-05 04:40] VITALS: BP 153/59
[2021-01-05 05:37] LABS: HEMATOCRIT 27.4 % (37.0-47.0); HEMOGLOBIN 9.5 gm/dL (12.0-15.0); MCH 31.6 pg (26.0-34.0); MCHC 34.6 g/dL (28.0-37.0); MCV 91.3 fL (80.0-100.0); RBC 3.01 mil/uL (4.20-5.00); RDW 16.6 % (10.5-14.5)
[2021-01-05 05:49] LABS: CALCIUM 8.5 mg/dL (8.5-10.1); CREATININE 1.5 mg/dL (0.6-1.0); POTASSIUM 4.3 mmol/L (3.5-5.1)
[2021-01-05 07:18] VITALS: BP 123/49
--- NOTE | 2021-01-05 13:06 | NUR ---
Received awake on bed. Due medications given as prescribed. On MS, not on telemetry; no complains and signs of chest pain, crushing sensation and heaviness. Assisted in ADLs. On room air. Vitals signs stable. On clear liquid diet- tolerating well; no nausea, no vomiting and no abdominal pain. Continent of bowel and bladder, able to go to the toilet with standby assist. Falls bundle in place. With SL at R AC. No complains of pain made during assessment. To continue monitoring patient. With elevated T:102- PRN tylenol given as prescribed; temp rechecked again: 99.1.
--- NOTE | 2021-01-05 13:08 | EKG ---
[address] [address] ELECTROCARDIOGRAM REPORT Name: BETY RAMIREZRICIA YAIR Room #: 456-P ADM IN M.R.#: [id number] Admission: 01/04/21 Attend Phys: Gary Fuller MD Discharge: Date of : 41 Report #: [id number] [facility] ED Test Date: 2021-01-04 Test Time: 13:24:23 Pat Name: YEN RAMIREZ Department: Room: 456 Gender: F Magazine Filler: CHARLEE : 1940 Requested By: Tessa Boateng Order Number: [id number] MD: Kailash Pina Measurements Intervals [place] Rate: 91 P: 24 [place]: 143 QRS: 3 QRSD: 83 T: 31 QT: 361 QTc: 445 Interpretive Statements Sinus rhythm Compared to ECG 07/27/2018 00:06:34 No significant changes Electronically Signed On 01-05-2021 13:08:34 CDT by Kailash Pina [email or web address] <ELECTRONICALLY SIGNED> By: Kailash Pina MD 01/05/21 1308 D: 05/1323 132 Kailash Pina MD /[facility]
[2021-01-05 15:46] VITALS: BP 136/61
[2021-01-05 19:37] VITALS: BP 143/56
[2021-01-06 01:00] VITALS: BP 133/64
--- NOTE | 2021-01-06 04:04 | NUR ---
ASSUMED CARE OF PT AT SHIFT CHANGE. PT IS AOX4 AND LETS NEEDS BE KNOWN. FALL PRECAUTION IN PLACE. PT HAD A TEMP OF 102.1 THIS SHIFT. POWER CHECKER NOTIFIED, AND TYLENOL GIVEN. PT DENIED NAUSEA OR SOA. ASSESSMENT CHARTED. ABX TREATMENT CONTINUED. PT WAS ABLE TO GET COMFORTABLE AND SLEEP PART OF THE SHIFT. NO S/S OF ACUTE DISTRESS. WILL CONTINUE TO MONITOR.
[2021-01-06 05:40] LABS: INR 2.54; PROTIME 26.5 Seconds (10.5-12.1)
[2021-01-06 06:19] LABS: ALBUMIN 1.6 g/dL (3.4-5.0); CREATININE 1.4 mg/dL (0.6-1.0); DIRECT BILIRUBIN 7.3 mg/dL (<0.1-0.2); POTASSIUM 5.9 mmol/L (3.5-5.1); TOTAL BILIRUBIN 10.1 mg/dL (0.2-1.0); TOTAL PROTEIN 6.2 g/dL (6.4-8.2)
[2021-01-06 06:30] LABS: CALCIUM 7.9 mg/dL (8.5-10.1)
[2021-01-06 07:22] VITALS: BP 145/63
[2021-01-06 16:40] VITALS: BP 118/51
--- NOTE | 2021-01-06 18:56 | NUR ---
PT IS ALERT ORIENTED X4. UP TO THE BATHROOM WITH STAND BY ASSIST. CONT ON CLEAR LIQUID DIET AND TOLERATING WELL. WILL CONT WITH PLAN OF CARE.
[2021-01-06 19:38] VITALS: BP 151/58
--- NOTE | 2021-01-07 04:45 | NUR ---
patient aox4 makes needs known. patient ambulates to the bathroom with steady gaits.patient has some weakness this shift, patient denied pain or discomfort.fall preacaution in place. patient in bed asleep at this time breathing regular and unlaboured.
[2021-01-07 05:30] LABS: HEMATOCRIT 21.4 % (37.0-47.0); MCH 31.7 pg (26.0-34.0); MCHC 34.4 g/dL (28.0-37.0); MCV 92.3 fL (80.0-100.0); RBC 2.32 mil/uL (4.20-5.00); RDW 16.8 % (10.5-14.5); WBC 9.5 thou/uL (4.0-11.0)
[2021-01-07 05:34] LABS: HEMOGLOBIN 7.4 gm/dL (12.0-15.0)
[2021-01-07 05:39] LABS: INR 1.88; PROTIME 19.9 Seconds (10.5-12.1)
[2021-01-07 05:58] LABS: ALBUMIN 1.4 g/dL (3.4-5.0); CREATININE 1.5 mg/dL (0.6-1.0); POTASSIUM 4.8 mmol/L (3.5-5.1); TOTAL BILIRUBIN 9.8 mg/dL (0.2-1.0); TOTAL PROTEIN 6.5 g/dL (6.4-8.2)
[2021-01-07 07:23] VITALS: BP 98/51
--- NOTE | 2021-01-07 10:39 | NUR ---
ASSUMED PT CARE THIS AM. PT IS ALERT & ORIENTED X4. PT HAS IV SITE ON R AC. PT IS UP WITH ASSIST X1. PT ON ROOM AIR. INFORMED DR ABOUT PT HGB WAS 7.4 AND BP TODAY. PT TOLERATED DIET WELL THIS AM. NO C/O OF NAUSEA AND VOMITING THIS AM. PT ON THE BED WATCHING TV, BED ON THE LOWEST POSITION, SIDE RAILS UP, CALL LIGHT WITHIN REACH. WILL CONTINUE TO MONITOR PT. FOLLOW POC.
[2021-01-07 15:47] VITALS: BP 139/69
[2021-01-07 20:07] VITALS: BP 162/77
[2021-01-08] VITALS (7 sets, daily range): BP systolic 102–168; BP diastolic 52–90
--- NOTE | 2021-01-08 03:36 | NUR ---
PATIENT DENIED PAIN OR DISCOMFORT.PATIENT SKIN IS YELLOW IN COLOR D/T GALL BLADDER BLOCKAGE. PATIENT AMBULATES TO THE BATHROOM WITH STEADY GAITS. FALL PRECAUTION IN PLACE. PATIENT HAS BEEN NPO SINCE MIDNIGHT.PATIENT IN BED ASLEEP AT THIS TIME BREATHING REGULAR AND UNLABOURED.
[2021-01-08 04:41] LABS: HEMATOCRIT 22.6 % (37.0-47.0); HEMOGLOBIN 7.7 gm/dL (12.0-15.0); MCH 31.4 pg (26.0-34.0); MCHC 34.1 g/dL (28.0-37.0); MCV 92.2 fL (80.0-100.0); RBC 2.45 mil/uL (4.20-5.00); RDW 16.7 % (10.5-14.5); WBC 9.2 thou/uL (4.0-11.0)
[2021-01-08 04:50] LABS: PROTIME 40.3 Seconds (10.5-12.1)
[2021-01-08 04:53] LABS: INR 3.95
[2021-01-08 05:01] LABS: ALBUMIN 1.4 g/dL (3.4-5.0); CALCIUM 8.2 mg/dL (8.5-10.1); CREATININE 1.6 mg/dL (0.6-1.0); POTASSIUM 5.4 mmol/L (3.5-5.1); TOTAL PROTEIN 6.9 g/dL (6.4-8.2)
[2021-01-08 05:02] LABS: TOTAL BILIRUBIN 9.4 mg/dL (0.2-1.0)
--- NOTE | 2021-01-08 11:40 | NUR ---
PT ADMITTED RELATED TO CHOLEDOCHOLITHIASIS AND ANEMIA. CM REVEIWED CHART AND SPOKE WITH CARE TEAM. CM MET WITH PT AT BEDSIDE THIS DAY. PT APPEARED TO BE A&O X4. CM ROLE INTRODUCED. PT INDICATED SHE RESIDES IN A TRI LEVEL HOUSE WITH HER MOTHER WITH 3-4 STEPS TO ENTER AND 8 OR MORE INSIDE. 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 PT INDICATED NO DME. PT INDICATED NO HH, OP, OR SNF HX. PT INDICATED SHE PLANS TO RETURN HOME ONCE MEDICALLY STABLE. GI CONSULTED, PT ON IV ZOSYN GETTING 2 UNITS OF FFP AND TO HAVE ERCP ONCE APPROPTIATE. CM FOLLOWING REGARDING DC PLANNING.
[2021-01-08 13:27] LABS: PROTIME 25.4 Seconds (10.5-12.1)
[2021-01-08 13:33] LABS: INR 2.43
--- NOTE | 2021-01-08 15:01 | NUR ---
Assumed pt care at 7am.Pt in bed resting and waiting for procedure to be done today at noon.Assessment completed.vss.Received call from Dr Hercules that pt will be receiving 2units of ffp before coming for ercp today.Pt informed and FFp given before sending pt to gi lab around 1300.Family here to visit, updates given.Will continue to monitor.
[2021-01-09 06:19] LABS: HEMATOCRIT 22.1 % (37.0-47.0); HEMOGLOBIN 7.4 gm/dL (12.0-15.0); MCH 31.4 pg (26.0-34.0); MCHC 33.5 g/dL (28.0-37.0); MCV 93.8 fL (80.0-100.0); RBC 2.36 mil/uL (4.20-5.00); RDW 16.8 % (10.5-14.5); WBC 4.6 thou/uL (4.0-11.0)
--- NOTE | 2021-01-09 06:24 | NUR ---
ASSUMED CARE OF PT AT SHIFT CHANGE. PT IS AOX4 AND LETS NEEDS BE KNOWN. ASSESSMENT CHARTED. ABX TREATMENT CONTINUED. PT DENIED PAIN, NAUSEA OR SOA THIS SHIFT. PT WAS ABLE TO GET COMFORTABLE AND SLEEP PART OF THE SHIFT. VSS AND NO S/S OF ACUTE DISTRESS. WILL CONTINUE TO MONITOR.
[2021-01-09 06:41] LABS: ALBUMIN 1.6 g/dL (3.4-5.0); DIRECT BILIRUBIN 4.5 mg/dL (<0.1-0.2); TOTAL BILIRUBIN 5.6 mg/dL (0.2-1.0); TOTAL PROTEIN 7.1 g/dL (6.4-8.2)
[2021-01-09 09:09] VITALS: BP 106/69
[2021-01-09 12:33] VITALS: BP 106/69
--- NOTE | 2021-01-09 12:53 | NUR ---
Received awake on bed. Due medications given as prescribed, able to swallow w/o difficulty. On MS, not on telemetry; no complains and signs of chest pain, crushing sensation and heaviness. On room air. Vital signs stable. On regular diet- tolerating well; no nausea, no vomiting and no abdominal pain noted. Continent of bowel and bladder, able to go to the toilet with standby assist. Falls bundle in place. With SL at R UA- on IV antibiotics. S/P ERCP 01/09. Pt seen and examined by Dr Fuller this AM, possible discharge today. No complains of pain made during assessment. Followed up this PM re: discharge from Dr Fuller- a/w Gastro clearance for d/c- CM updated. To continue monitoring patient.
[2021-01-09 15:10] VITALS: BP 123/73
--- NOTE | 2021-01-09 16:05 | NUR ---
PT HAD ERCP DONE YESTERDAY. HOSPITALIST HAD INDICATED LIKELY MEDICALLY STABLE TO DC HOME THIS DAY ONCE GI CLEARS. LOOKS LIKE WE ARE STILL AWAITING GI CLEARENCE AT TIME OF THIS NOTE. CM HAD REACHED OUT TO HOSPITALIST, DIGITAL FIELD SERVICE TECHNICIAN, AND ASSOCIATE DOCTOR FOR DIRECTION ON WHETHER PT IS TO DC OR NOT. PT AND OT DISCHARGED AND INDICATED THAT PT WOULD BE SAFE TO DC HOME HOME ONCE MEDICALLY STABLE. PT WILL LIKELY BE MEDICALLY STABLE TO DC HOME TO SELF CARE ONCE MEDICALLY STABLE.
[2021-01-09] MEDS ORDERED: METRONIDAZOLE500 M4 PO (17:18)
[2021-01-09] MEDS ORDERED: CIPROFLOXACIN500 M1 PO (17:18)
[2021-01-09 20:00] VITALS: BP 157/67
--- NOTE | 2021-01-10 04:50 | NUR ---
ASSUMED CARE OF PT AT SHIFT CHANGE. PT IS AOX4 AND LETS NEEDS BE KNOWN. ASSESSMENT CHARTED. ABX TREATMENT CONTINUED. DC ORDERS IN PLACE; PT STAYED SHE COULD NOT CONTACT FAMILY. PT WAS ABLE TO GET COMFORTABLE AND SLEEP PART OF THE SHIFT. VSS AND NO S/S OF ACUTE DISTRESS. WILL CONTINUE TO MONITOR.
[2021-01-10 06:14] LABS: PROTIME 12.9 Seconds (10.5-12.1)
[2021-01-10 06:16] LABS: ALBUMIN 1.7 g/dL (3.4-5.0); CALCIUM 8.2 mg/dL (8.5-10.1); CREATININE 1.5 mg/dL (0.6-1.0); POTASSIUM 4.4 mmol/L (3.5-5.1); TOTAL BILIRUBIN 3.7 mg/dL (0.2-1.0); TOTAL PROTEIN 7.3 g/dL (6.4-8.2)
[2021-01-10 06:34] LABS: INR 1.19
[2021-01-10 07:28] VITALS: BP 133/59
--- NOTE | 2021-01-10 11:36 | NUR ---
CARE TEAM INDICATED THAT PT IS MEDICALLY STABLE TO DC HOME THIS DAY. CM MET WITH PT AT BEDSIDE AND SHE INDICATED SHE NEEDED TRANSPORT HOME. CM PROVIDED CAB VOUCHER AND THEN PT'S MOTHER AND BROTHER INDICATED THAT THEY WERE GOING TO PICK PT UP INSTEAD. PT TO DC HOME THIS DAY TO SELF CARE. NO OTHER CM INTERVENTION INDICATED. CASE CLOSED.
--- NOTE | 2021-01-10 14:56 | NUR ---
Assumed pt care this am, VS stable. Pt stated she was suppose to go home yesterday but did not have a way. Spoke to the brother who mentioned he and his mother will be picking up the pt. POC followed with no signs or verbalizations of distress noted. IV removed, pt is now dc.
--- NOTE | 2021-01-14 15:05 | P ---
[facility] [place] [address] PROCEDURE REPORT Name: YEN RAMIREZ YAIR Room #: 456-P [facility] IN M.R.#: [id number] Admission: 01/04/21 Attend Phys: Gary Fuller MD Discharge: 01/10/21 Date of : 42 Report #: [id number] THIS REPORT FOR: cc: Nguyễn Germain MD, Christopher B. MD McElhinney, Christian C. MD ~ DOC #: [id number] cc: Gary Fuller MD, Robinson Lau MD, MD Ian Paul MD DATE OF SERVICE: 01/08/2021 PROCEDURE PERFORMED: Endoscopic retrograde cholangiopancreatography with stent placement. HISTORY OF PRESENT ILLNESS: The patient is a 80-year-old female who was admitted with intermittent abdominal pain. She was noted to have elevated liver function tests initially with a total bilirubin of 5.7, this claimed to 10.1, today is currently 9.4. She has an AST of 56, ALT of 26, alkaline phosphatase 356. The patient underwent a CT scan of the abdomen and pelvis on 01/04 showing cholecystectomy changes, marked intrahepatic and extrahepatic bile duct distention secondary to impacted calculus at the distant common bile duct at the head of the pancreas. No pancreatic ductal dilation was seen, impacted calculus measures 11 mm in diameter, common bile duct is dilated up to 2.6 cm in diameter. Apparently, the patient has had previous ERCPs with sphincterotomy and stone removal in the past when looking back in time, none of those axilla procedures were documented on our computer this was per the patient's old history. She has been on Zosyn since admission. Interestingly, her INR was 2.82 on admission. No history of Coumadin or anticoagulation therapy. No obvious history of liver disease. She was given p.o. vitamin K and her INR dropped yesterday morning to 1.88; however, repeat this morning was 3.95. Therefore, she received 2 units FFP today. Her INR dropped to 2.43. She is now in the process of getting her fourth unit of FFP this afternoon. Plan is for ERCP. DESCRIPTION OF PROCEDURE: The risks and benefits of the procedure were explained to the patient, those risks including but not limited to bleeding, perforation and the risk of sedation as well as the potential risk for post-ERCP pancreatitis. The patient understands and agrees with these risks. The procedure was performed in the operating room under general anesthesia. Again, the patient is already on IV Zosyn scheduled at this time. She was given a 50 mg indomethacin rectal suppository prior to the procedure as well. Next, using a standard Olympus ERCP side-viewing scope, the scope was placed in the patient's mouth and advanced under direct vision through the esophagus, stomach and into the second portion of the duodenum. Initially, it appeared the papilla was somewhat enlarged. There was drainage from the papilla was clear using a [facility] [address] [place] [address] PROCEDURE REPORT Name: YEN RAMIREZ Room #: 456-P [facility] IN ..#: [id number] Admission: 01/04/21 Attend Phys: Gary Fuller MD Discharge: 01/10/21 Date of : 42 Report #: [id number] Alejandro-Cook 0.25 Dome Tip sphincterotome catheter. I placed the catheter in the major papilla opening and advanced the catheter; however, this was into the pancreatic duct. The catheter was removed and then realized a larger opening that I thought was a diverticulum appears to be opening from previous sphincterotomy. The catheter was advanced into the common bile duct without difficulty and a cholangiogram was obtained. There was a massive dilation of the common bile duct to 2.5 cm. It took a large amount of dye to even filled the common bile duct. It was difficult to tell if there is any obvious stone in there, but again this was seen as an incredibly large stone on recent CT at 11 mm. I was able to advance a guidewire into the intrahepatic ducts. Because of the size of the potential stone and the fact that the patient's INR was still elevated, also in addition to this, I did not see the ability to further extend the sphincterotomy without potential risk. I felt it trying to remove any stones today with balloon sweeps would be a higher risk. I therefore proceeded with placing a 10-[place] 7 cm stent in the common bile duct, good drainage was noted. Of note, there was a large amount of sludge, also some purulent drainage as well consistent with likely cholangitis. At this point, the scope was then withdrawn and the procedure terminated. The patient tolerated the procedure well. IMPRESSION: Extremely dilated common bile duct, difficult to tell if there was a large stone within the duct because of the size of the duct. Also noted was a large amount of debris and purulent drainage consistent with cholangitis. Placement of a biliary stent as described above. Because of the patient's elevated INR despite FFP and her previous sphincterotomy, I felt best to place a stent and later have the patient undergo a potential EUS, also repeat ERCP with SpyGlass, which could be used to remove large stones at that point by Dr. Lau. RECOMMENDATIONS: 1. Continue IV antibiotics. 2. Observe the patient post-procedure. 3. Again, likely repeat ERCP by Dr. Lau in the next few months with SpyGlass and endoscopic ultrasound capabilities. Thank you for allowing me to participate in her care. Ian Mckeon MD [facility]/ALL [facility] [address] [place] [address] PROCEDURE REPORT Name: YEN RAMIREZ [facility] Room #: 456-P [facility] IN M.R.#: [id number] Admission: 01/04/21 Attend Phys: Gary Fuller MD Discharge: 01/10/21 Date of : 42 Report #: [id number] <ELECTRONICALLY SIGNED> By: Ian Mckeon MD 01/14/21 1505 1603 2223 Ian Mckeon MD /nt
== END 2021-01-10 14:11 | disposition home or self-care (01) | DRG 444 ==
LOC: ER 13:08 → 4W 16:12 → EROBS 16:12 → 4W 17:55
PROVIDERS: Physician Assistant; Specialist; ADMIT Hospitalist; ATTEND Hospitalist
PROC: 30233N1 Transfusion of Nonautologous Red Blood Cells into Peripheral Vein, Percutaneous Approach (ICD-10-PCS; principal; 2021-01-04)
PROC: 30233K1 Transfusion of Nonautologous Frozen Plasma into Peripheral Vein, Percutaneous Approach (ICD-10-PCS; 2021-01-08)
PROC: 0F798DZ Dilation of Common Bile Duct with Intraluminal Device, Via Natural or Artificial Opening Endoscopic (ICD-10-PCS; 2021-01-08)
DX: K80.30 Calculus of bile duct with cholangitis, unspecified, without obstruction (principal); E43 Unspecified severe protein-calorie malnutrition; R65.11 Systemic inflammatory response syndrome (SIRS) of non-infectious origin with acute organ dysfunction; D62 Acute posthemorrhagic anemia; Z96.643 Presence of artificial hip joint, bilateral; G89.4 Chronic pain syndrome; N18.9 Chronic kidney disease, unspecified; E80.6 Other disorders of bilirubin metabolism; D3A.00 Benign carcinoid tumor of unspecified site; I12.9 Hypertensive chronic kidney disease with stage 1 through stage 4 chronic kidney disease, or unspecified chronic kidney disease; E11.22 Type 2 diabetes mellitus with diabetic chronic kidney disease; K80.70 Calculus of gallbladder and bile duct without cholecystitis without obstruction; Z90.49 Acquired absence of other specified parts of digestive tract; Z79.4 Long term (current) use of insulin; Z90.710 Acquired absence of both cervix and uterus; Z85.038 Personal history of other malignant neoplasm of large intestine; Z88.7 Allergy status to serum and vaccine; Z91.041 Radiographic dye allergy status; Z20.822 Contact with and (suspected) exposure to COVID-19
CPT/HCPCS: 10045; 10047; 62110; 62900; 70005

== ENCOUNTER 2021-05-23 14:17 | Emergency (ER) | payer OTHER ==
[~2021-05-23] VITALS: Ht 162.6 cm; Wt 54.4 kg
[~2021-05-23 14:17] MED LIST changes: +METRONIDAZOLE500 M4 PO
[2021-05-23] MEDS ORDERED: CORTISPORIN OTI10 M2 OTIC (15:42)
[2021-05-23 15:44] VITALS: BP 137/49
== END 2021-05-23 15:44 | disposition home or self-care (01) ==
LOC: ER 14:17
DX: S00.412A Abrasion of left ear, initial encounter (principal); H92.02 Otalgia, left ear; E11.22 Type 2 diabetes mellitus with diabetic chronic kidney disease; I12.9 Hypertensive chronic kidney disease with stage 1 through stage 4 chronic kidney disease, or unspecified chronic kidney disease; N18.9 Chronic kidney disease, unspecified; Z98.890 Other specified postprocedural states; Z90.710 Acquired absence of both cervix and uterus; Z79.891 Long term (current) use of opiate analgesic; Z79.899 Other long term (current) drug therapy; Z79.1 Long term (current) use of non-steroidal anti-inflammatories (NSAID); Z88.7 Allergy status to serum and vaccine; Z91.041 Radiographic dye allergy status; X58.XXXA Exposure to other specified factors, initial encounter; Y93.89 Activity, other specified; Y92.89 Other specified places as the place of occurrence of the external cause; Y99.8 Other external cause status